=== PATIENT | female | born 1965 | race Two or more races ===

== ENCOUNTER 2018-01-25 13:37 | Emergency (ER) | payer OTHER ==
[~2018-01-25] VITALS: Ht 160 cm; Wt 63.5 kg
[2018-01-25 14:08] VITALS: BP 106/52
[2018-01-25] MEDS ORDERED: KETOROLAC TROMETH 60MG/2ML VIAL IM ONE (14:30)
== END 2018-01-25 15:09 | disposition home or self-care (01) ==
LOC: ER 13:41
DX: G89.29 Other chronic pain (principal); M25.511 Pain in right shoulder; Z76.0 Encounter for issue of repeat prescription; Z88.6 Allergy status to analgesic agent
CPT/HCPCS: 99283; J1885